=== PATIENT | male | born 1970 ===

== ENCOUNTER 2017-03-27 11:21 | Emergency (ER) | payer MEDICAID ==
--- NOTE | 2017-03-27 11:32 | ED PDOC ---
Arrival/HPI - General Chief Complaint: Eye Problem Time Seen by Provider: 03/27/17 11:24 Historian: Patient - History of Present Illness Narrative History of Present Illness (Text): you were treated in the ED today for a few drops of chemical in the eyes LAs totally awesome chemical in the eye without acid/ammonia/bleach/non-flammable 2 weeks ago and with redness, light sensitivity and tearing in both eyes with discharge now for the past few days otherwise don't wear glasses or contact lenses, states without any blurry vision/nausea/vomiting/headache/dizziness/ difficulty breathing/chest pain/abdomen pain/numbness/tingling/loss of limb function/pain with urination. tetanus out of date past 5 years. 03/27/17 11:28 03/27/17 12:17 Past Medical History - Provider Review Nursing Documentation Reviewed: Yes - Travel History Have you recently traveled outside [place] w/in the past 3 mons?: No - Tetanus Immunization Tetanus Immunization: >10 years Ago Family/Social History - Physician Review Nursing Documentation Reviewed: Yes Family/Social History: No Known Family HX Allergies/Home Meds Allergies/Adverse Reactions: Allergies No Known Allergies Allergy (Verified 03/27/17 11:26) Home Medications: Home Meds Medication Instructions Recorded Confirmed Naproxen [Naprosyn] 1 tab PO Q8 PRN 03/27/17 03/27/17 Review of Systems - Review of Systems Constitutional: Normal Eyes: Photophobia, Eye Pain, Other (tearing) ENT: Normal Respiratory: Normal Cardiovascular: Normal Gastrointestinal: Normal Genitourinary Male: Normal Musculoskeletal: Normal Skin: Normal Neurological: Normal Endocrine: Normal Hemo/Lymphatic: Normal Psychiatric: Normal Physical Exam Vital Signs Reviewed: Yes Vital Signs Temp Pulse Resp BP Pulse Ox 03/27/17 11:34 98.4 F 73 18 149/83 97 03/27/17 11:26 98.4 F 73 16 149/83 97 Temperature: Afebrile Blood Pressure: Hypertensive Pulse: Regular Respiratory Rate: Normal Appearance: Positive for: Well-Appearing, Non-Toxic, Comfortable Mental Status: Positive for: Alert and Oriented X 3 - Systems Exam Head: Present: Atraumatic, Normocephalic Pupils: Present: PERRL Extroacular Muscles: Present: EOMI Conjunctiva: Present: Injected, Other (b/l visual acuity 20/20, b/l slit lamp wo foriegn body, pink eyelids, b/l flourosein mild corneal uptake wo ulceration , lam pressures b/l 5/5/3) Ears: Present: Normal Mouth: Present: Moist Mucous Membranes Pharnyx: Present: Normal Nose (External): Present: Atraumatic Nose (Internal): Present: Normal Inspection Neck: Present: Normal Range of Motion Respiratory/Chest: Present: Clear to Auscultation, Good Air Exchange, Respiratory Distress Cardiovascular: Present: Regular Rate and Rhythm Abdomen: No: Tenderness, Distention, Normal Bowel Sounds, Peritoneal Signs, Rebound, Guarding, McBurney's Point Tender, Rovsing's Sign Present, Hernias, Feeding Tubes, Ostomy Tubes, Mass/Organomegaly, Scars, Other Back: Present: Normal Inspection Upper Extremity: Present: Normal Inspection Lower Extremity: Present: Normal Inspection Neurological: Present: GCS=15, CN II-XII Intact, Speech Normal Skin: Present: Warm, Normal Color Psychiatric: Present: Alert, Oriented x 3, Normal Insight, Normal Concentration Medical Decision Making ED Course and Treatment: you were treated in the ED today for a few drops of chemical in the eyes LAs totally awesome chemical in the eye without acid/ammonia/bleach/non-flammable 2 weeks ago and with redness, light sensitivity and tearing in both eyes with discharge now for the past few days otherwise don't wear glasses or contact lenses, states without any blurry vision/nausea/vomiting/headache/dizziness/ difficulty breathing/chest pain/abdomen pain/numbness/tingling/loss of limb function/pain with urination. tetanus out of date past 5 years. You were otherwise breathing easily, smiling and laughing with us, good strength/ sensation, walking easily, clear lungs, no abdomen tenderness, your vision in both eyes was 20/20 normal, with mild both eyes redness with mild both eyes corneal abrasion without ulceration and no foriegn body, otherwise no fever temp 98.4, stable heart rate 73, stable breathing rate 18, excellent oxygen level 97% room air, elevated blood pressure 149/83 which we recommend repeat in 2-3 days primary care office to determine further treatment, counselled to monitor vision, given erythromycin for today in both eyes once and thus discharged home. 1. Recommend stop erythromycin after today, then start sulfacetamide as directed for both eyes infection prevention. 2. Recommend over the counter artificial tears for eye hydration. recommend motrin as directed for pain control. 3. Recommend follow-up primary care 2-3 days to review symptoms, referral to opthalmology clinic for followup 2-3 days. 4. If any worsening pain, fever, chills, nausea, vomiting, difficulty breathing, numbness , loss of limb function, pain with urination or any medical condition then return to the ED. 03/27/17 11:31 03/27/17 12:23 03/27/17 12:26 Disposition/Present on Arrival - Present on Arrival Any Indicators Present on Arrival: Yes - Disposition Have Diagnosis and Disposition been Completed?: Yes Diagnosis: Corneal abrasion, Conjunctivitis Disposition: HOME/ ROUTINE Disposition Time: 12:29 Patient Problems: Current Active Problems Problem Status Onset Conjunctivitis Acute Corneal abrasion Acute Condition: IMPROVED Additional Instructions: you were treated in the ED today for a few drops of chemical in the eyes LAs totally awesome chemical in the eye without acid/ammonia/bleach/non-flammable 2 weeks ago and with redness, light sensitivity and tearing in both eyes with discharge now for the past few days otherwise don't wear glasses or contact lenses, states without any blurry vision/nausea/vomiting/headache/dizziness/ difficulty breathing/chest pain/abdomen pain/numbness/tingling/loss of limb function/pain with urination. tetanus out of date past 5 years. You were otherwise breathing easily, smiling and laughing with us, good strength/ sensation, walking easily, clear lungs, no abdomen tenderness, your vision in both eyes was 20/20 normal, with mild both eyes redness with mild both eyes corneal abrasion without ulceration and no foreign body, otherwise no fever temp 98.4, stable heart rate 73, stable breathing rate 18, excellent oxygen level 97% room air, elevated blood pressure 149/83 which we recommend repeat in 2-3 days primary care office to determine further treatment, counselled to monitor vision, given erythromycin for today in both eyes once, tetanus booster and thus discharged home. 1. Recommend stop erythromycin after today, then start sulfacetamide as directed for both eyes infection prevention. 2. Recommend over the counter artificial tears for eye hydration. recommend motrin as directed for pain control. 3. Recommend follow-up primary care 2-3 days to review symptoms, referral to ophthalmology clinic for followup 2-3 days. 4. If any worsening pain, fever, chills, nausea, vomiting, difficulty breathing, numbness, loss of limb function, pain with urination or any medical condition then return to the ED. Prescriptions: Sulfacetamide Sodium [Bleph 10% Eye Drops] 2 drop OD Q12 7 Days #1 bottle Referrals: Deneen Wilkerson MD [Primary Care Provider] - Follow up with primary Dwight Miles [Staff Provider] - Follow up with primary Forms: [employer] (Italian)
[2017-03-27 11:33] VITALS: TEMP 98.4; O2SAT 97
[2017-03-27 11:35] VITALS: RESP 18
[2017-03-27] MEDS ORDERED: TDAP Vaccine 0.5 mL Syr IM ONE (12:12)
[2017-03-27] MEDS ORDERED: Erythromycin 0.5% Ophth Oint 1 APPLIC/3.5 G OU ONE (12:25)
[2017-03-27 12:31] VITALS: BP 138/78; PULSE 69
== END 2017-03-27 12:41 | disposition home or self-care (01) ==
LOC: ED 11:21
DX: H10.9 Unspecified conjunctivitis (principal); S05.02XA Injury of conjunctiva and corneal abrasion without foreign body, left eye, initial encounter; S05.01XA Injury of conjunctiva and corneal abrasion without foreign body, right eye, initial encounter; X58.XXXA Exposure to other specified factors, initial encounter; Z23 Encounter for immunization

== ENCOUNTER 2017-06-29 19:38 | Emergency (ER) | payer MEDICAID ==
[2017-06-29 19:53] VITALS: BMI 32.8
[2017-06-29 20:02] VITALS: RESP 18
[2017-06-29 20:56] LABS: BASO # 0.02 K/mm3 (0.0-2.0); BASO % 0.2 % (0.0-3.0); EOS # 0.2 (0.0-0.7); EOS % 2.1 % (1.5-5.0); GRAN # 5.6 (1.4-6.5); GRAN % 62.8 % (50.0-68.0); HEMOGLOBIN 14.9 g/dL (14.0-18.0); LYMPH # 2.5 (1.2-3.4); LYMPH % 28.4 % (22.0-35.0); MEAN CELL VOLUME 89.2 fl (80.0-105.0); MEAN CORPUSCULAR HEMOGLOBIN 29.7 pg (25.0-35.0); MEAN CORPUSCULAR HGB CONC 33.3 g/dl (31.0-37.0); MEAN PLATELET VOLUME 10.9 fl (7.0-11.0); MONO # 0.6 (0.1-0.6); MONO % 6.5 % (1.0-6.0); RBC 5.02 10^6/uL (3.5-6.1); RED CELL DISTRIBUTION WIDTH 13.3 % (11.5-14.5); WHITE BLOOD COUNT 8.9 10^3/ul (4.5-11.0)
[2017-06-29 20:57] LABS: URINE BILIRUBIN NEGATIVE (NEGATIVE); URINE BLOOD NEGATIVE (NEGATIVE); URINE GLUCOSE (UA) NEGATIVE (NEGATIVE); URINE LEUKOCYTE ESTERASE NEGATIVE Leu/uL (NEGATIVE); URINE PROTEIN NEGATIVE mg/dL (<30 mg/dL); URINE UROBILINOGEN 0.2 E.U./dL (<1 E.U./dL)
[2017-06-29 21:01] LABS: URINE APPEARANCE CLEAR (CLEAR); URINE COLOR LIGHT YELLOW (YELLOW)
[2017-06-29 21:11] LABS: ALB/GLOB RATIO 1.4 (1.1-1.8); ALBUMIN 4.8 g/dL (3.0-4.8); ALT/SGPT 53 U/L (7-56); AST/SGOT 37 U/L (17-59); BLOOD UREA NITROGEN 11 mg/dL (7-21); CALCIUM 10.5 mg/dL (8.4-10.5); GFR AFRICAN-AMERICAN > 60; GFR NON-AFRICAN AMERICAN > 60
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
[2017-06-29 21:39] VITALS: BP 151/90; PULSE 57; TEMP 98; O2SAT 100
--- NOTE | 2017-06-29 21:58 | CT ---
EXAM: CT Abdomen and Pelvis Without Intravenous Contrast CLINICAL HISTORY: 46 years old, male; Pain; Other: Rt flank pain; Additional info: Right flank pain TECHNIQUE: Axial computed tomography images of the abdomen and pelvis without intravenous contrast. All CT scans at this facility use one or more dose reduction techniques, viz.: automated exposure control; ma/kV adjustment per patient size (including targeted exams where dose is matched to indication; i.e. head); or iterative reconstruction technique. Coronal and sagittal reformatted images were created and reviewed. COMPARISON: No relevant prior studies available. FINDINGS: Limitations: Lack of intravenous contrast. Motion artifact - mild to moderate. Lower thorax: Mild atelectasis/scarring. ABDOMEN: Liver: Unremarkable. Gallbladder and bile ducts: No calcified stones. No ductal dilation. Pancreas: Unremarkable. No ductal dilation. Spleen: No splenomegaly. Adrenals: No mass. Kidneys and ureters: No discrete renal calculi. No hydronephrosis. Stomach and bowel: Stool formation within small bowel loops may suggest delayed transit. No definite mural thickening. No obstruction. Appendix: No findings to suggest acute appendicitis. PELVIS: Bladder: Apparent mild bladder wall thickening. Incomplete distention, limiting evaluation. No stones. Reproductive: Unremarkable as visualized. ABDOMEN and PELVIS: Intraperitoneal space: No significant fluid collection. No free air. Bones/joints: Postsurgical changes of left femur. Chronic deformity left iliac wing. Degenerative changes of spine. Fracture right 12th rib. Soft tissues: Tiny umbilical hernia containing fat. Vasculature: Minimal atherosclerotic disease of aorta. No aneurysm. Lymph nodes: No pathologically enlarged lymph nodes. IMPRESSION: 1. No definite CT evidence of obstructing urolithiasis. 2. Mild cystitis vs underdistention. Correlate with urinalysis. 3. Right rib fracture. 4. Incidental/non-acute findings are described above.
--- NOTE | 2017-06-30 08:41 | RAD ---
PROCEDURE: Radiographs of the Chest and Right Ribs. HISTORY: right rib pain COMPARISON: None available. TECHNIQUE: Frontal radiograph of the chest and multiple oblique radiographs of the right ribs were obtained. FINDINGS: RIGHT RIBS: No fracture or focal lesion visualized. LUNGS: Clear. PLEURA: No pneumothorax or pleural fluid. CARDIOVASCULAR: Normal sized heart. No pulmonary vascular congestion. OTHER FINDINGS: None. IMPRESSION: Unremarkable radiographs of the chest and right ribs. No right rib fracture.
== END 2017-06-29 22:55 | disposition home or self-care (01) ==
LOC: ED 19:38
DX: S22.31XA Fracture of one rib, right side, initial encounter for closed fracture (principal); W01.0XXA Fall on same level from slipping, tripping and stumbling without subsequent striking against object, initial encounter; Y92.008 Other place in unspecified non-institutional (private) residence as the place of occurrence of the external cause; M54.5 Low back pain; I10 Essential (primary) hypertension
CPT/HCPCS: 71101; 74176; 80053; 81003; 85025; 96374; 99285; J1885